=== PATIENT | male | born 1965 | race Caucasian/White ===

== ENCOUNTER → 2017-04-27 10:15 | Outpatient (CLI) | payer BC | END | disposition home or self-care (01) | LOC: D.RAD 10:15 | DX: Z68.41 Body mass index [BMI] 40.0-44.9, adult (principal); E66.01 Morbid (severe) obesity due to excess calories; E78.5 Hyperlipidemia, unspecified ==

== ENCOUNTER → 2017-04-29 07:32 | Day surgery (SDC) | payer BC ==
[~2017-04-29] VITALS: Ht 177.8 cm; Wt 122.7 kg
[~2017-04-29 07:32] MED LIST: LIPITOR10 MG PO
[2017-04-29 08:26] VITALS: Ht 177.8 cm; Wt 122.7 kg
--- NOTE | 2017-04-29 12:25 | NUR ---
1215 PT ESCORTED OUT AND ACCOMPANIED BY HIS DAUGHTER.
== END | disposition home or self-care (01) ==
LOC: D.OPS 07:32
DX: E66.01 Morbid (severe) obesity due to excess calories (principal); Z68.41 Body mass index [BMI] 40.0-44.9, adult; E78.5 Hyperlipidemia, unspecified; K21.9 Gastro-esophageal reflux disease without esophagitis; Z01.812 Encounter for preprocedural laboratory examination

== ENCOUNTER → 2017-05-05 12:42 | Outpatient (CLI) | payer BC ==
[2017-04-29 08:26] VITALS: BMI 38.8
--- NOTE | 2017-05-05 15:08 | NUR ---
Nutrition education for bariatric surgery: S: Pt believes he is destined to become a type 2 diabetic since his mother and aunt developed DMT2 after the age of 50. Pt reports gaining 20# since September 2016 without changing his eating habits. Pt reports he eats a very healthy diet and watches his portion sizes; does not overeat. Pt gets a lot of exercise on the job and plays softball also. O: 52 year old male. Ht: 5'10" Wt: 240# IBW: 166# +/-10% BMI: 34.4 PMH: Hiatal hernia, elevated cholesterol, GERD A: Pt is convinced he is unable to lose weight without surgery. Pt states he is having surgery to prevent DMT2 and the complications. Reviewed pre/post of diet phases. Discussed protein needs; pouch size; supplements; no straws; no alcohol; no carbonated drinks; 1/2 cup pouch size; sample menus; liquids between meals. Pt with good understanding of information provided. RDN feels pt is not a candidate for bariatric surgery due to BMI of only 34.4; RDN believes pt should be able to lose enough weight without surgery to bring BMI down below 30.0. Provided pt with printed diet information and RDN name and phone number. Answered all pts questions. RDN will be available if needed. Thank you for the consult.
== END | disposition home or self-care (01) ==
LOC: D.FANS 04-15 10:30
DX: E66.01 Morbid (severe) obesity due to excess calories (principal)